=== PATIENT | female | born 2000 | race Hispanic/Latino ===

== ENCOUNTER 2021-06-05 21:35 | Emergency (ER) | payer BC ==
[~2021-06-05] VITALS: Ht 149.9 cm; Wt 74.8 kg
[2021-06-05] MEDS ORDERED: KETOROLAC TROMETHAMINE 30 MG/ML VIAL IM STA (21:44)
[2021-06-05] MEDS ORDERED: LIDOCAINE 4% PATCH TP SCH (21:45)
[2021-06-05] MEDS ORDERED: LIDOCAINE 4% PATCH TP ONE (21:56)
[2021-06-05] MEDS ORDERED: LIDOCAINE1 EAC1 EXT (23:24)
== END 2021-06-05 23:32 | disposition home or self-care (01) ==
LOC: ER 21:48
DX: R07.81 Pleurodynia (principal); X50.1XXA Overexertion from prolonged static or awkward postures, initial encounter
CPT/HCPCS: 71101; 81025; 99283; J1885

== ENCOUNTER 2022-01-21 12:24 | Emergency (ER) | payer BC ==
[~2022-01-21] VITALS: Ht 149.9 cm; Wt 65.8 kg
[~2022-01-21 12:24] MED LIST: LIDOCAINE1 EAC1 EXT
[2022-01-21 14:21] LABS: CLARITY,URINE SL CLOUDY (CLEAR); COLOR,URINE YELLOW (YELLOW)
[2022-01-21 14:22] LABS: KETONES,URINE NEGATIVE (NEGATIVE); LEUKOCYTE ESTERASE ,URINE NEGATIVE (NEGATIVE); NITRITE,URINE NEGATIVE (NEGATIVE); PROTEIN,URINE DIPSTICK NEGATIVE (NEGATIVE); URINE UROBILINOGEN 0.2 mg/dL (0.2 - 1)
[2022-01-21 14:23] LABS: AMORPHOUS SEDIMENT,URINE MODERATE (FEW); BACTERIA,URINE MODERATE /HPF; EPITHELIAL CELLS,URINE MANY /LPF; RBC,URINE 0-5 /HPF (0-5)
[2022-01-21] MEDS ORDERED: KEFLEX125 MG/5 M PO (14:29)
== END 2022-01-21 14:44 | disposition home or self-care (01) ==
LOC: ER 12:28
DX: R30.0 Dysuria (principal); R10.30 Lower abdominal pain, unspecified; M54.50 Low back pain, unspecified; R11.0 Nausea
CPT/HCPCS: 81001; 81025; 99283